=== PATIENT | female | born 1980 | race Caucasian/White ===

== ENCOUNTER → 2023-08-14 09:19 | Outpatient (BNVA) | payer MEDICAID, SELFPAY | PROVIDERS: Visit Provider Family Medicine | DX: G43.909 Migraine, unspecified, not intractable, without status migrainosus (principal); Z79.890 Hormone replacement therapy; R00.2 Palpitations | CPT/HCPCS: 80053; 80061; 82306; 82728; 83550; 84443; 85025 ==

== ENCOUNTER → 2023-12-24 08:33 | Outpatient (BNVA) | payer MEDICAID, SELFPAY | PROVIDERS: PCP Family Medicine | DX: R05.9 Cough, unspecified (principal) | CPT/HCPCS: 87426 ==

== ENCOUNTER → 2025-02-01 12:38 | Outpatient (BNVA) | payer MEDICAID, SELFPAY | PROVIDERS: PCP Family Medicine; Visit Provider Nurse Practitioner Women's Health | DX: Z01.89 Encounter for other specified special examinations (principal); R53.83 Other fatigue | CPT/HCPCS: 82306; 82728; 83540; 84270; 84402; 84403; 84439; 84443; 84481; 85025 ==